=== PATIENT | male | born 1960 | race Caucasian/White ===

== ENCOUNTER 2021-05-13 11:55 | Emergency (ER) | payer OTHER ==
[~2021-05-13] VITALS: Ht 182.9 cm; Wt 106.6 kg
[2021-05-13 12:20] VITALS: BP_SYST 128
[2021-05-13] MEDS ORDERED: HYDROcodone/ACETAMIN 5-325 MG TAB (NORCO/ VICODIN) PO ONE (13:00)
[2021-05-13] MEDS ORDERED: LIDOCAINE/EPI 2% 1:100000 20 ML VIAL INJ ONE (13:00)
[2021-05-13] MEDS ORDERED: NAPR-1172 PO (13:33)
[2021-05-13] MEDS ORDERED: BACI15OI13 TP (13:33)
[2021-05-13] MEDS ORDERED: BACITRACIN 1 GM OINT TP ONE (14:03)
[2021-05-13 14:17] VITALS: BP_SYST 128
== END 2021-05-13 14:17 | disposition home or self-care (01) ==
LOC: SED 11:55
DX: S81.811A Laceration without foreign body, right lower leg, initial encounter (principal); S80.11XA Contusion of right lower leg, initial encounter; Z79.899 Other long term (current) drug therapy; W45.8XXA Other foreign body or object entering through skin, initial encounter; Y93.89 Activity, other specified; Y92.89 Other specified places as the place of occurrence of the external cause; Y99.8 Other external cause status
CPT/HCPCS: 73590-TC; 99283